=== PATIENT | male | born 1950 | race Caucasian/White ===

== ENCOUNTER 2019-07-02 13:43 | Emergency (ER) | payer MEDICARE, SELFPAY ==
--- NOTE | ~2019-07-02 | XR_ITS ---
EXAMINATION: XR hip LT 2V w AP pelvis DATE: 07/02/2019 14:07 INDICATION: Left hip pain. Fall. TECHNIQUE: An anteroposterior view of the pelvis and 3 views of left hip were obtained. COMPARISON: Pelvis and left hip radiographs 08/15/2018 FINDINGS: There is a bipolar left hip hemiarthroplasty in near-anatomic alignment. No fracture. No pe riprosthetic lucency to suggest loosening or infection. There is mild osteoarthritis of the hips. The re is at least mild lumbar spondylosis. IMPRESSION: 1. Bipolar left hip hemiarthroplasty in near-anatomic alignment. 2. Mild osteoarthrosis of the hips. Reviewed, dictated and finalized at location A. CANVASSER
--- NOTE | ~2019-07-02 | XR_ITS ---
XR elbow LT min 3V 07/02/2019 15:12 Indication: Left elbow pain after fall Procedure: 4 views left elbow Comparison: No prior studies for comparison. Findings: Osteopenia. No significant joint effusion. Mild degenerative changes of the elbow. No acute fracture or traumatic malalignment. No radiopaque foreign bodies. Impression: 1: No acute fracture. Reviewed, dictated and finalized at Location [facility]. Reviewed, dictated and finalized at location A. OR PHP DEVELOPER Impression: 1: No acute fracture.
[2019-07-02 13:45] VITALS: BP 141/85; PULSE 81; RESP 18; TEMP 36.5; O2SAT 98
--- NOTE | 2019-07-02 15:18 | ED.FALL ---
HPI - Fall General Chief Complaint: Fall Stated Complaint: L HIP PAIN Time Seen by Provider: 07/02/19 14:32 History of Present Illness HPI Narrative: Patient is a 68-year-old male who presents to the emergency department status post fall this afternoon. Patient complaining of left hip, femur, and left elbow pain. Patient reports abrasion in the left elbow. Patient reports a history of stroke with limited movement on left side. Patient denies hitting head or LOC. Patient reports his leg just gave out . Patient denies taking [id number]-[id number] medications for pain at this time. Related Data Home Medications Medication Instructions Recorded Confirmed atorvastatin 40 mg PO DAILY 07/02/19 07/02/19 omeprazole 20 mg PO BID 07/02/19 07/02/19 rivaroxaban [Xarelto] 20 mg PO QPM 07/02/19 07/02/19 Allergies Allergy/AdvReac Type Severity Reaction Status Date / Time No Known Allergies Allergy Unverified 02/14/19 07:21 Review of Systems Review of Systems: Narrative: CONSTITUTIONAL: Denies fever, chills, or sweats. EYES: Denies visual changes, redness, or discharge. ENT: Denies rhinorrhea, congestion, sore throat, or otalgia. CARDIOVASCULAR: Denies chest pain, palpitations, or edema. RESPIRATORY: Denies cough or dyspnea. GASTROINTESTINAL: Denies abdominal pain, nausea, vomiting, or diarrhea. GENITOURINARY: Denies dysuria or hematuria. SKIN: Denies rash or itching, reports small abrasion to left elbow. MUSCULOSKELETAL: Denies back pain, reports left elbow pain, left hip pain, left femur pain s/p fall. NEUROLOGIC: Denies headache, numbness, dizziness, or weakness. PSYCHIATRIC: Denies anxiety or depression. [facility] Past Medical History Medical History (Updated 07/02/19 @ 15:30 by MICHELLE Devine) CVA (cerebral vascular accident) (Acute) Falls frequently (Acute) Hypercholesterolemia (Acute) Surgical History Surgical History (Updated 07/02/19 @ 15:24 by MICHELLE Devine) History of left hip replacement (Acute) Social History Social History (Updated 07/02/19 @ 15:24 by MICHELLE Devine) Smoking status: Former smoker Tobacco type: cigarettes Alcohol intake: current Alcohol use details: Social drinking Substance use: never Living arrangements: with family Exam Narrative: Exam Narrative: GENERAL: Well-appearing, well-nourished, and in no acute distress. HEAD: Normocephalic, atraumatic. EYES: EOMI. No redness or drainage. Conjunctiva are normal. CHEST: No respiratory distress. Clear to auscultation. HEART: Regular rate and rhythm. No murmur appreciated. Normal peripheral pulses. MUSCULOSKELETAL: No bony tenderness. EXTREMITIES: Normal range of motion, no deformity, no edema, no left leg shortening, no ecchymosis noted SKIN: Approximate 2 x 3 superficial abrasion to the left elbow, bleeding controlled. NEURO: No focal deficits. Alert and oriented x3. Gait steady. PSYCH: Normal affect. No signs of depression or anxiety. Course Vital Signs Vital signs: Vital Signs Temperature 36.5 C 07/02/19 13:45 Pulse Rate 81 07/02/19 13:45 Respiratory Rate 18 07/02/19 13:45 Blood Pressure 141/85 H 07/02/19 13:45 Pulse Oximetry 98 07/02/19 13:45 Temperature 36.5 C 07/02/19 13:45 Pulse Rate 81 07/02/19 13:45 Respiratory Rate 18 07/02/19 13:45 Blood Pressure 141/85 H 07/02/19 13:45 Pulse Oximetry 98 07/02/19 13:45 Reviewed. Patient has been instructed to follow-up with his PCP regarding his blood pressure. MDM - Fall Differential Diagnosis Differential diagnosis: Likely other ( fracture, contusion, sprain, strain, abrasion) Imaging Data Attestation: I personally reviewed and interpreted this imaging study as follows: Radiologist's impression: ITS Impressions Hip/Pelvis X-Ray 07/02/19 14:16 IMPRESSION: 1. Bipolar left hip hemiarthroplasty in near-anatomic alignment. 2. Mild osteoarthrosis of the hips. Elbow X-Ray 07/02/19 15:15 Impression: 1: N
--- NOTE | 2019-07-02 16:38 | ED.FALL ---
HPI - Fall General Chief Complaint: Fall Stated Complaint: L HIP PAIN Time Seen by Provider: 07/02/19 14:32 History of Present Illness HPI Narrative: Patient is a 68-year-old male who presents after a fall this a.m. He reports leg gave out while walking. He reports falling on left hip and elbow onto carpet. Denies LOC. Reports history of stroke and limited movement on left side. He reports her abrasion to left elbow. Pain to left hip and to the left elbow. Denies taking [id number] medications for pain at this time. Related Data Home Medications Medication Instructions Recorded Confirmed atorvastatin 40 mg PO DAILY 07/02/19 07/02/19 omeprazole 20 mg PO BID 07/02/19 07/02/19 rivaroxaban [Xarelto] 20 mg PO QPM 07/02/19 07/02/19 Allergies Allergy/AdvReac Type Severity Reaction Status Date / Time No Known Allergies Allergy Unverified 02/14/19 07:21 Review of Systems Review of Systems: Narrative: CONSTITUTIONAL: Denies fever, chills, or sweats. EYES: Denies visual changes, redness, or discharge. ENT: Denies rhinorrhea, congestion, sore throat, or otalgia. CARDIOVASCULAR: Denies chest pain, palpitations, or edema. RESPIRATORY: Denies cough or dyspnea. GASTROINTESTINAL: Denies abdominal pain, nausea, vomiting, or diarrhea. GENITOURINARY: Denies dysuria or hematuria. SKIN: Denies rash or itching. Abrasion left elbow MUSCULOSKELETAL: Denies back pain, left shoulder, left hip pain. NEUROLOGIC: Denies headache, numbness, dizziness, or weakness. PSYCHIATRIC: Denies anxiety or depression. [facility] Past Medical History Medical History (Updated 07/02/19 @ 15:30 by MICHELLE Devine) CVA (cerebral vascular accident) (Acute) Falls frequently (Acute) Hypercholesterolemia (Acute) Surgical History Surgical History (Updated 07/02/19 @ 15:24 by MICHELLE Devine) History of left hip replacement (Acute) Social History Social History (Updated 07/02/19 @ 15:24 by MICHELLE Devine) Smoking status: Former smoker Tobacco type: cigarettes Alcohol intake: current Substance use: never Exam Narrative: Exam Narrative: GENERAL: Well-appearing, well-nourished, and in no acute distress. HEAD: Normocephalic, atraumatic. EYES: EOMI. No redness or drainage. Conjunctiva are normal. ENT: Mucous membranes pink and moist. NECK: AROM. Supple. No lymphadenopathy. CHEST: No respiratory distress. Clear to auscultation. HEART: Regular rate and rhythm. No murmur appreciated. Normal peripheral pulses. MUSCULOSKELETAL: No bony tenderness. EXTREMITIES: Normal range of motion. No edema, no deformity. Limited movement in left elbow related to previous CVA. SKIN: 2 x 3 abrasion to left elbow, bleeding controlled NEURO: No focal deficits. Alert and oriented x3. Gait steady. PSYCH: Normal affect. No signs of depression or anxiety. Course Course Emergency Course: Patient's requesting to speak with care coordination for physical therapy at home referral. quality compliance coordinator called at this time and will begin to speak to patient prior to discharge. Vital Signs Vital signs: Vital Signs Temperature 36.5 C 07/02/19 13:45 Pulse Rate 81 07/02/19 13:45 Respiratory Rate 18 07/02/19 13:45 Blood Pressure 141/85 H 07/02/19 13:45 Pulse Oximetry 98 07/02/19 13:45 Temperature 36.5 C 07/02/19 13:45 Pulse Rate 81 07/02/19 13:45 Respiratory Rate 18 07/02/19 13:45 Blood Pressure 141/85 H 07/02/19 13:45 Pulse Oximetry 98 07/02/19 13:45 MDM - Fall Differential Diagnosis Differential diagnosis: Likely other (Fracture, contusion, sprain, strain, abrasion) Critical Care Time Critical Care Time Critical Care Time: No Discharge Plan Discharge Clinical Impression: Acute pain of left hip Fall Qualifiers: Encounter type: initial encounter Qualified Code(s): W19.XXXA - Unspecified fall, initial encounter Patient Disposition: Home, Self-Care Condition: Stable Instructions: Co
[2019-07-02 17:26] VITALS: BP 132/74; PULSE 80; RESP 20; TEMP 36.7; O2SAT 98
== END 2019-07-02 17:29 | disposition home or self-care (01) ==
PROVIDERS: Emergency Provider Nurse Practitioner; Visit Provider Nurse Practitioner
DX: M25.552 Pain in left hip (principal); M19.90 Unspecified osteoarthritis, unspecified site; E78.5 Hyperlipidemia, unspecified; Z87.891 Personal history of nicotine dependence; W01.0XXA Fall on same level from slipping, tripping and stumbling without subsequent striking against object, initial encounter
CPT/HCPCS: 73080; 73502; 73521; 99284

== ENCOUNTER 2022-05-20 13:04 | Emergency (ER) | payer MEDICARE, SELFPAY ==
--- NOTE | ~2022-05-20 | US_ITS ---
EXAMINATION:US venous doppler LE BI INDICATION:Leg pain TECHNIQUE: Multiple grayscale, color flow and Doppler images of the right and left lower extremity de ep venous systems were obtained and reviewed. COMPARISON:03/30/2016 FINDINGS: The common femoral, superficial femoral and popliteal veins demonstrate normal respiratory variation, augmentation and compressibility. Color flow is also seen within the posterior tibial, pe roneal, greater saphenous and profunda veins. IMPRESSION: 1: No lower extremity deep venous thrombosis. Reviewed, dictated and finalized at location A.
[2022-05-20 13:16] VITALS: BP 124/79; PULSE 95; RESP 16; TEMP 36.6; O2SAT 99
--- NOTE | 2022-05-20 14:43 | ED.LOWEXIN ---
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 Patient states the cramps have been present for 2 weeks and have progressively worsened. Patient states he was on his way to see his primary care physician this afternoon when he was unable to walk, so he decided to come here to be evaluated. Patient denies any recent injury or trauma. Patient is on Xarelto due to his CVA. Related Data Home Medications Medication Instructions Recorded Confirmed atorvastatin 40 mg tablet 40 mg PO DAILY 07/02/19 07/02/19 omeprazole 20 mg tablet,delayed 20 mg PO BID 07/02/19 07/02/19 release rivaroxaban 20 mg tablet (Xarelto) 20 mg PO QPM 07/02/19 07/02/19 Allergies Allergy/AdvReac Type Severity Reaction Status Date / Time No Known Allergies Allergy Unverified 02/14/19 07:21 Review of Systems Review of Systems: CONSTITUTIONAL: Denies fever, chills, or sweats. EYES: Denies visual changes, redness, or discharge. ENT: Denies rhinorrhea, congestion, sore throat, or otalgia. CARDIOVASCULAR: Denies chest pain, palpitations, or edema. RESPIRATORY: Denies cough or dyspnea. GASTROINTESTINAL: Denies abdominal pain, nausea, vomiting, or diarrhea. GENITOURINARY: Denies dysuria or hematuria. SKIN: Denies rash or itching. MUSCULOSKELETAL: Reports left calf and right thigh discomfort NEUROLOGIC: Denies headache, numbness, dizziness, or weakness. PSYCHIATRIC: Denies anxiety or depression. [facility] Past Medical History Medical History CVA (cerebral vascular accident) Falls frequently Hypercholesterolemia Surgical History Surgical History History of left hip replacement Social History Social History Smoking status: Former smoker Tobacco type: cigarettes Alcohol intake: current Alcohol use details: Social drinking Substance use: never Exam Narrative: GENERAL: Well-appearing, well-nourished, no physical limitations, and in no acute distress. HEAD: Normocephalic, atraumatic. EYES: Conjunctivae normal, PERRLA and EOMI. CHEST: Clear to auscultation. No respiratory distress. No wheezes rales or rhonchi. No tenderness. HEART: Regular rate and rhythm. No murmur heard. Normal peripheral pulses. EXTREMITIES: RLE: Tenderness over the thigh. Full range of motion of the right hip and right knee joints. LLE: Tenderness to the calf, negative Homans SKIN: Warm, dry, no rash. No noted wounds NEURO: Left-sided paralysis alert and oriented x3. CN's II-XI intact bilaterally, dropfoot left lower extremity. PSYCH: Cooperative. Normal mood and affect. Course Vital Signs Vital signs: Vital Signs Temperature 36.6 C 05/20/22 13:16 Pulse Rate 95 05/20/22 13:16 Respiratory Rate 16 05/20/22 13:16 Blood Pressure 124/79 05/20/22 13:16 Pulse Oximetry 99 05/20/22 13:16 Oxygen Delivery Room Air 05/20/22 13:16 Temperature 36.6 C 05/20/22 13:16 Pulse Rate 95 05/20/22 13:16 Respiratory Rate 16 05/20/22 13:16 Blood Pressure 124/79 05/20/22 13:16 Pulse Oximetry 99 05/20/22 13:16 Oxygen Delivery Room Air 05/20/22 13:16 MDM - Extremity Injury (Lower) Lab Data Result diagrams: 05/20/22 14:48 05/20/22 14:48 Labs: Lab Results 05/20/22 05/20/22 05/20/22 Range/Units 14:48 14:48 16:00 WBC 7.0 (4.5-10.0) K/mm3 RBC 5.04 (4.6-6.20) M/mm3 Hgb 15.6 (14.0-18.0) g/dL Hct 46.5 (42.0-52.0) % MCV 92.3 (80-100) fl MCH 31.0 (26-34) pg MCHC 33.5 (32-36) g/dl RDW 14.1 (11.5-14.5) % Plt Count 2
[2022-05-20] MEDS: SODIUM CHLORIDE 0.9% IV 1,000 ML 999 ML IV CONT (14:52)
[2022-05-20 14:56] LABS: Basophils Absolute Auto 0.1 K/mm3 (0.0-0.1); Eosinophils Absolute Auto 0.1 K/mm3 (0-0.3); Eosinophils Percent Auto 1.9 % (0-4.4); Hematocrit 46.5 % (42.0-52.0); Hemoglobin 15.6 g/dL (14.0-18.0); Immature Granulocyte Absolute 0.02 K/mm3 (0.00-0.031); Immature Granulocyte Percent A 0.3 % (0-0.5); Lymphocytes Absolute Auto 1.32 K/mm3 (0.9-3.2); Mean Corpuscular HGB Conc 33.5 g/dl (32-36); Mean Corpuscular Volume 92.3 fl (80-100); Mean Platelet Volume 9.4 fl (7.4-10.4); Monocytes Absolute Auto 0.6 K/mm3 (0.1-0.6); Monocytes Percent Auto 8.8 % (2.6-8.5); Neutrophils Absolute Auto 4.8 K/mm3 (1.3-6.7); Platelet Count Result 299 k/mm3 (150-375); Red Blood Count 5.04 M/mm3 (4.6-6.20); Red Cell Distribution Width 14.1 % (11.5-14.5)
[2022-05-20 15:13] LABS: Alanine Aminotransferase 26 U/L (6-50); Alkaline Phosphatase 115 U/L (38-126); Anion Gap 11 mmol/L (8-16); Aspartate Amino Transferase 34 U/L (17-59); Blood Urea Nitrogen 18 mg/dL (9-20); Calcium 8.6 mg/dL (8.4-10.2); Carbon Dioxide 23 mmol/L (22-30); Chloride 104 mmol/L (98-107); Estimated Glomerular Filt Rate > 60; Glucose 114 mg/dL (65-110); Potassium 3.8 mmol/L (3.4-5.0); Sodium 138 mmol/L (137-145)
[2022-05-20 16:13] LABS: Appearance Urine Clear (Clear); Bilirubin Urine 1+ (Negative); Blood Urine Negative (Negative); Color Urine Yellow (Yellow); Glucose Urine UA Negative (Negative); Ketones Urine 2+ mg/dL (Negative); Leukocyte Esterase Ur Negative LEU/UL (Negative); Nitrate Urine Negative (Negative); Protein Urine Negative (Negative); Urobilinogen Urine 0.2 mg/dL (<2.0)
[2022-05-20 16:28] LABS: Mucus Urine Few /lpf; WBC Urine 0-3 /hpf
[2022-05-20 16:30] LABS: Add Urine Microscopic? YES
[2022-05-20 16:34] VITALS: BP 132/72; PULSE 70; RESP 18; O2SAT 98
== END 2022-05-20 16:35 | disposition home or self-care (01) ==
PROVIDERS: Emergency Provider Nurse Practitioner Family
DX: M79.10 Myalgia, unspecified site (principal); M79.605 Pain in left leg; Z79.01 Long term (current) use of anticoagulants; E78.00 Pure hypercholesterolemia, unspecified; Z86.73 Personal history of transient ischemic attack (TIA), and cerebral infarction without residual deficits; Z87.891 Personal history of nicotine dependence
CPT/HCPCS: 36415; 80053; 81001; 85025; 93970; 96360; 99283; J7030